=== PATIENT | female | born 1960 | race Native Hawaiian/Other Pacific Islander ===

== ENCOUNTER 2019-01-29 05:34 | Emergency (ER) | payer BC ==
[~2019-01-29] VITALS: Ht 165.1 cm; Wt 71.7 kg
[2019-01-29 05:59] VITALS: TEMP 97.5
[2019-01-29 06:15] LABS: PLATELET COUNT 261 K/uL (152-353)
[2019-01-29 06:23] LABS: POTASSIUM 3.7 mmol/L (3.6-5.2)
[2019-01-29 08:08] VITALS: BP 151/89
== END 2019-01-29 08:10 | disposition home or self-care (01) ==
LOC: ED 05:34
PROVIDERS: Family Medicine
DX: N23 Unspecified renal colic (principal); N13.2 Hydronephrosis with renal and ureteral calculous obstruction; N20.0 Calculus of kidney; K57.90 Diverticulosis of intestine, part unspecified, without perforation or abscess without bleeding
CPT/HCPCS: 80053; 81000; 85027; 96360; 96374; 96375; 99284; J1885; J2405

== ENCOUNTER 2019-09-07 09:57 | Outpatient (CLI) | payer BC | END 2019-09-07 21:45 | disposition home or self-care (01) | LOC: LABW 09:57 | DX: B35.1 Tinea unguium (principal); M79.676 Pain in unspecified toe(s) | CPT/HCPCS: 36415; 80076 ==

== ENCOUNTER 2022-07-20 12:37 | Emergency (ER) | payer BC ==
[~2022-07-20] VITALS: Ht 165.1 cm; Wt 77.1 kg
[2022-07-20] MEDS ORDERED: CINNAMON PO (12:59)
[2022-07-20] MEDS ORDERED: NIACIN500 M3 PO (13:00)
[2022-07-20] MEDS ORDERED: TURMERI1 PO (13:01)
[2022-07-20] MEDS ORDERED: [UNRECOGNIZED DRUG - CODE] PO (13:01)
[2022-07-20] MEDS ORDERED: SUPER B COM1 PO (13:02)
[2022-07-20] MEDS ORDERED: OMEGA PO (13:03)
[2022-07-20 13:28] LABS: PLATELET COUNT 252 K/uL (152-353)
[2022-07-20 13:36] LABS: POTASSIUM 4.1 mmol/L (3.6-5.2); SODIUM 139 mmol/L (136-145)
[2022-07-20 15:11] VITALS: BP 138/81; TEMP 98
== END 2022-07-20 15:12 | disposition home or self-care (01) ==
LOC: ED 12:37
PROVIDERS: Emergency Medicine
DX: G44.209 Tension-type headache, unspecified, not intractable (principal)
CPT/HCPCS: 80053; 80307; 81002; 84484; 85027; 85379; 96374; 96375; 99284; J1885; J2270; J2360; J2405